=== PATIENT | male | born 1975 ===

== ENCOUNTER 2025-09-08 09:50 | Outpatient (REF) | payer OTHER, SELFPAY ==
--- OUTSIDE RECORDS SUMMARY | 2025-09-08 13:54 | XMS_ITS | Clinical Summary ---
Author Organization [employer] [facility] ity Address [address] [place] [address] Care Team Providers Care Terrazzo Tile Setter Name Role Phone Tc Ho MD Primary Care Provider [phone] Surgical History Surgery Date Site/Laterality Comments APPENDECTOMY at age 8 PROCEDURE: HISTORICAL APPENDECTOMY MULTIPLE TOOTH EXTRACTIONS PROCEDURE: HISTORICAL DENTAL EXTRACTION Family History Medical History Relation Name Comments Diabetes Father Hyperlipidemia Father Hypertension Father Diabetes Mother Hyperlipidemia Mother Hypertension Mother Thyroid disease Mother Colon cancer Paternal Grandfather Prostate cancer Paternal Grandfather Relation Name Status Comments Daughter 1 Alive Daughter 2 Alive Daughter 3 Alive Father Alive Maternal Grandfather Maternal Grandmother Mother Alive Paternal Grandfather Paternal Grandmother Alive Sister 1 Alive Sister 2 Alive Son 1 Alive Son 2 Alive Son 3 Alive Social History Tobacco Use Types Packs/Day Years Used Date Smoking Tobacco: Never Smokeless Tobacco: Never Alcohol Use Standard Drinks/Week Comments No 0 (1 standard drink = 0.6 oz pur e alcohol) Sex and Gender Information Value Date Recorded Sex Assigned at Not on file Legal Sex Male 9:26 AM EST Gender Identity Not on file Sexual Orientation Not on file Obstetrics History Plan of Treatment Health Maintenance Due Date Last Done Comments Hepatitis B Vaccines (1 of 3 - 19+ 3-dose series) 1994 DTaP,Tdap,and Td Vaccines (2 - Td or Tdap) 04/26/2024 04/26/2014 Depression Screening 11/16/2024 Pneumococcal Vaccine: 50+ Years (1 of 1 - PCV) 2025 Zoster Vaccines (1 of 2) 2025 COVID-19 Vaccine (1 - 2023-2 5 season) 2025 Influenza Vaccine (#1) 2025 6, 09/21/2014 RSV Immunization Adult Patients (1 - 1-dose 75+ series) 2050 HIB Vaccines Aged Out No longer eligi ble based on patient's age to complete this topic HPV Vaccines Aged Out No longer eligi ble based on patient's age to complete this topic Hepatitis A Vaccines Aged Out No long er eligible based on patient's age to complete this topic IPV Vaccines Aged Out No longer eligi ble based on patient's age to complete this topic MMR Vaccines Aged Out No longer eligi ble based on patient's age to complete this topic Meningococcal ACWY Vaccine Aged Out N o longer eligible based on patient's age to complete this topic Meningococcal B Vaccine Aged Out No l onger eligible based on patient's age to complete this topic RSV Immunization Patients Under 20 months Aged Out No longer eligible b ased on patient's age to complete this topic Varicella Vaccines Aged Out No longer eligible based on patient's age to complete this topic Care Teams Terrazzo Tile Setter Relationship Specialty Start Date End Date Tc Ho MD PCP - General Internal Medicine 05/14/20
[2025-09-08 14:26] LABS: Appearance Urine Clear; Glucose Urine UA Negative (Negative); PH 7.0 (5.0-9.0); Specific Gravity - Urine 1.010 (1.005-1.025)
[2025-09-08 15:24] LABS: Alanine Aminotransferase 31 U/L (0-40); Albumin Level 4.8 g/dL (3.5-5.0); Alkaline Phosphatase 56 U/L (39-117); Anion Gap 11 (12-20); Aspartate Amino Transferase 25 U/L (5-37); Blood Urea Nitrogen 15 mg/dL (9-16); Calcium 8.9 mg/dL (8.4-10.2); Carbon Dioxide 27 mmol/L (22-29); Chloride 108 mmol/L (96-108); Cholesterol 151 mg/dL (<200); Estimated Glomerular Filt Rate > 60; HDL Cholesterol 59 mg/dL (>40); Potassium 3.7 mmol/L (3.3-5.1); Sodium 142 mmol/L (135-145); Total Protein 7.8 g/dL (6.5-8.0); Triglycerides 55 mg/dL (<150)
[2025-09-15 22:14] LABS: Testosterone, Free 63.4 pg/mL (35.0-155.0)
== END 2025-09-08 09:51 | disposition home or self-care (01) ==
LOC: HO.WFDLDS 09:50
PROVIDERS: PCP Family Medicine; Visit Provider Family Medicine
DX: Z00.00 Encounter for general adult medical examination without abnormal findings (principal); Z12.5 Encounter for screening for malignant neoplasm of prostate; R73.01 Impaired fasting glucose; I10 Essential (primary) hypertension; Z79.899 Other long term (current) drug therapy
CPT/HCPCS: 36415; 80053; 80061; 81003; 82043; 82570; 83036; 84153; 84402; 84403; 84443; 96127; 99212

== ENCOUNTER 2025-09-08 09:50 | Outpatient (AMB) | payer OTHER, SELFPAY ==
--- NOTE | 2025-09-08 09:54 | A.OFFPC_ITS ---
Vital Signs 09/08/25 10:34 Height 5 ft 7 in Weight 164 lb 4 oz BMI 25.7 BP 118/82 Blood Pressure Location Lt brachial Position Sitting Respiration 14 Pulse 69 Pulse Source Pulse Oximeter Temp 97.6 F Temp Source Temporal Artery Scan Pulse Oximetry (%) 98 Oxygen Delivery Method Room Air Intake Visit Reasons: est care/request a pe Intake Note: Tl presents in the office today to establish care. Allergies Seasonal Allergies Allergy (Intermediate, Verified 09/08/25 10:29) Sinus Congestion Medication List - Last Reconciled 09/08/25 by Sunny Bailey MD lutein 20 mg PO DAILY magnesium chloride mg PO multivitamin (Daily Multi-Vitamin tablet) 1 tab PO DAILY omega-3 acid ethyl esters 1 cap PO DAILY Tobacco use date assessed: 09/08/25 Dental Screening Dental Screen Date: 09/08/25 Did you have a dental visit in the last 12 months?: Yes Did you have a dental problem in the last 6 months where you did not have access to dental care?: No Was dental information given to patient?: Patient has dentist HPI est care/request a pe HPI Details New Patient? ?? Prior PCP:? Gabriella Krishnan [place] [facility] [place] Last office visit/CPE:? > 1 yr Acute issue(s):? Pt had Thyroid nodule. FH Thyroid issues Will get U/S ?? PMHx:?Thyroid Nodule Elevated A1c per pt. SurgHx:? Appendix FHx:?Mom: Thyroid issues., Dad: DM SocHx: Cigs None. EtOH Occassional Wine. No Drugs PFSH Medical History (Updated 09/08/25 @ 11:09 by Fausto Beaver) Acid reflux Surgical History (Updated 09/08/25 @ 10:14 by Mckenzie Ruff CMA) Hx of appendectomy H/O colonoscopy Family History (Updated 09/08/25 @ 10:35 by Mckenzie Ruff CMA) Father Hypertension Diabetes Mother Diabetes Maternal Grandmother Diabetes Paternal Grandfather Cancer Prostate cancer Sister Thyroid cancer Social History Housing: House Patient Tobacco Use Status: Never used Tobacco e-Cigarette/Vaping Use: Never Used Second Hand Smoke Exposure: No service: No Current occupational status: employed Current occupation: [employer] Current occupational exposures/hazards: No Cognitive needs: No Hearing needs: No Vision needs: No Questionnaire PHQ-9 Over the last 2 weeks, how often have you been bothered by any of the following problems? 1. Little interest or pleasure in doing things: not at all 2. Feeling down, depressed, or hopeless: not at all 3. Trouble falling or staying asleep, or sleeping too much: not at all 4. Feeling tired or having little energy: not at all 5. Poor appetite or overeating: not at all 6. Feeling bad about yourself - or that you are a failure or have let yourself or your family down: not at all 7. Trouble concentrating on things, such as reading the newspaper or watching television: not at all 8. Moving or speaking so slowly that other people could have noticed. Or the opposite - being so fidgety or restless that you have been moving around a lot more than usual: not at all 9. Thoughts that you would be better off or of hurting yourself in some way: not at all Total score: 0 Depression Screening Interpretation: Negative Depression Screening Done: Yes Source: Developed by Drs. Jose L Cortez, Yoanna Olivares, Darshan Mcdonnell and colleagues, with an educational chiquis from [employer]. Thrive Questionnaire Date Thrive assessed: 09/08/25 I am a: Patient What is your living situation today?: I have a steady place to live Within the past 12 months, did the food you bought not last and you didn't have the money to get more?: I choose not to answer this question Within the past 12 months, did you worry whether your food would run out before you got money to buy more?: I choose not to answer this question Do you have trouble paying for medicines?: No Do you have trouble getting transportation to medical appointments?: No Do you have trouble paying your heating and electricity bill?: I choose not to answer this question Do you have trouble taking care of your child, family member or friend?: No Do you have trouble with day-to-day activities such as bathing, preparing meals, shopping, managing finances, etc.?: No Are you currently unemployed and looking for a job?: No Are you interested in more education?: Yes Please select the resources that you would like help with: None Currently or been in a relationship where the following occur: No concerns reported THRIVE Score: 0 AUDIT C Alcohol Use Questionnaire (AUDIT-C) 1. How often do you have a drink containing alcohol?: Monthly or less 2. How many drinks containing alcohol do you have on a typical day when you are drinking?: 1 or 2 3. How often do you have six or more drinks on one occasion?: Never Total Score: 1 ENRICO-7 AMB Questionnaire ENRICO-7 Date ENRICO - 7 assessed: 09/08/25 Feeling nervous, anxious, or on edge: 0 = Not at all Not being able to stop or control worryin = Not at all Worrying too much about different things: 0 = Not at all Trouble relaxin = Not at all Being so restless that it is hard to sit still: 0 = Not at all Becoming easily annoyed or irritable: 0 = Not at all Feeling afraid as if something awful might happen: 0 = Not at all Total ENRICO-7 score (0-4 normal; 5-9 mild; 10-14 moderate; 15-21 severe): 0 Source: Developed by Drs. Jose L Cortez, Yoanna Olivares, Darshan Mcdonnell and colleagues, with an educational chiquis from [employer]. ENRICO-7 Assessment Billing ENRICO-7 Assessment Tool: ENRICO-7 Assessment 74000 Review of Systems Const Denies chills, Denies fatigue, Denies fever(s), Denies headache(s) and Denies weakness Eyes Denies change in vision ENT Denies dizziness, Denies headache(s), Denies hearing loss, Denies nasal congestion, Denies sinus pain, Denies sinus pressure and Denies sore throat Card Denies chest pain, Denies lightheadedness, Denies dyspnea and Denies other (palpitations) Resp Denies cough, Denies dyspnea and Denies wheezing GI Denies abdominal pain, Denies melena, Denies hematochezia, Denies change in bowel habits, Denies dyspepsia and Denies nausea Denies hematuria and Denies dysuria Musc Denies abnormal gait, Denies myalgias, Denies arthralgias, Denies numbness and Denies tingling Skin/Breast Denies rash, Denies unusual bruising and Denies wounds Neuro Denies abnormal gait, Denies dizziness, Denies headache(s), Denies memory loss, Denies numbness, Denies Sensory deficit (Neuro), Denies tingling and Denies weakness Psych Denies anxiety, Denies depression and Denies memory loss Endo Denies cold intolerance, Denies fatigue, Denies heat intolerance, Denies polydipsia and Denies polyuria Caleb/Lymph Denies easy bleeding and Denies easy bruising Aller/Immun Denies wheezing Physical exam (Primary Care) Vital Signs: Last Vital Signs Temp 97.6 F 09/08/25 10:34 Pulse 69 09/08/25 10:34 Resp 14 09/08/25 10:34 BP 118/82 09/08/25 10:34 Pulse Ox 98 09/08/25 10:34 Oxygen Delivery Method Room Air 09/08/25 10:34 BMI result Body Mass Index 25.7 Tobacco/Smoking Status: Tobacco use Status Tobacco use date assessed 09/08/25 09/08/25 10:37 Patient Tobacco Use Status Never used Tobacco 09/08/25 10:37 e-Cigarette/Vaping Use Never Used 09/08/25 10:37 PHQ-9: PHQ-9 Score PHQ-9: Total score 0 09/08/25 10:37 Depression Screening Interpretation: Negative Thrive Assessment: Date of Thrive Assessment Date Thrive assessed 09/08/25 09/08/25 09:55 Currently or been in a relationship where the following occur: No concerns reported Const General: no acute distress, well developed, alert and awake Nutritional Appearance: well nourished Orientation/consciousness: patient oriented x3 HENMT Head: Yes normocephalic and Yes atraumatic Ears: hearing grossly normal bilaterally and TM's normal bilaterally General nose exam: Normal external nose present and Normal nares present Mouth: Normal oral and palatal mucosa present and moist mucous membranes Teeth and gingiva: dentition normal Throat: Yes posterior oropharynx normal Eyes General: appearance normal, both eyes and all related structures Pupils: Equal, round and reactive pupils present and Pupil accommodation reflex normal EOM: EOMs intact bilaterally Neck Neck: Yes normal visual inspection, Yes no lymphadenopathy and Yes trachea midline Thyroid: Thyroid normal Carotids: no bruits Lymphatic: no lymphadenopathy noted Chest Chest palpation & inspection: normal inspection of the chest Resp Effort & Inspection: normal respiratory effort Auscultation: clear to auscultation bilaterally Cardio Rate: regular rate Rhythm: regular rhythm Heart sounds: S1 normal heart sound present, S2 normal heart sound present, no gallops, no murmurs and no rubs Bruits: no abdominal aortic bruits and no carotid bruits GI Palpation (GI): No Abdominal aortic bruit present, Soft to palpation, nontender, No hepatosplenomegaly present and No Rebound tenderness present Auscultation: normal bowel sounds General: Yes no CVA tenderness Back/Spine/Pelvis Back: no CVA tenderness Cervical Spine: cervical ROM normal and No Cervical spine tenderness Thoracic/Lumbar Spine: thoraco-lumbar ROM normal, No pain with thoraco-lumbar ROM, No thoracic spinal tenderness and No lumbar spinal tenderness Skin Lesions: no lesions Rashes: no rashes Trauma: no lacerations or abrasions Wounds: no wounds Nails: normal Neuro General: patient oriented x3 Cranial nerves: Yes Equal, round and reactive pupils present Cognition (Neuro): normal cognition Gait exam (Neuro): Normal gait present Motor exam (neuro): 5/5 motor strength present throughout Sensory Exam: No Sensory deficit (Neuro) Deep tendon reflexes (DTR's): Right patellar reflex intensity grade: 2+ and Left patellar reflex intensity grade: 2+ Extrem General: Yes normal to inspection and No edema Psych Appearance: grossly normal Affect: normal affect Attitude: cooperative Thought process: Normal thought process present Coding Level of Care Code New Pt Level 3 (69180) New Pt Prev Care 40-64y(91115) Diagnoses Thyroid nodule E04.1 Acid reflux K21.9 Difficulty sleeping G47.9 Adult general medical exam Z00.00 Additional Codes ENRICO-7 Assessment Billing - ENRICO-7 Assessment Tool: ENRICO-7 Assessment 28785 ([id number]) Assessment & Plan Assessment & Plan (1) Thyroid nodule: Code(s): E04.1 - Nontoxic single thyroid nodule Category: Medical Plan: History of thyroid nodule. Patient says he was being followed Q2 years by ultrasound Will request prior records Due for ultrasound-ordered (2) Acid reflux: Code(s): K21.9 - Gastro-esophageal reflux disease without esophagitis Category: Medical Plan: Patient will use Pepcid intermittently when he has symptoms and can also use in an anticipatory fashion If he is still having significant symptoms, he will let know (3) Difficulty sleeping: Code(s): G47.9 - Sleep disorder, unspecified Category: Medical Plan: Encouraged patient to read about ?sleep hygiene? Encouraged exercise but not too close to bedtime (4) Adult general medical exam: Code(s): Z00.00 - Encounter for general adult medical examination without abnormal findings Category: Medical Plan: 50-year-old male presents as new patient for complete physical exam Exam within normal limits Encouraged healthy diet with active lifestyle and plenty of exercise Plan He will follow-up by telemedicine in few weeks to review CPE-labs. Will also follow-up on thyroid ultrasound if results are available. Will also review health maintenance Lastly, patient has strong family history of diabetes and noted changes his A1c in the past. Checking A1c. Orders: Orders Hemoglobin A1c Today R73.01 - Impaired fasting glucose US thyroid Today E04.1 - Nontoxic single thyroid nodule Comprehensive [place]. Panel Fast Today Z00.00 - Encounter for general adult medical examination without abnormal findings Lipid Panel Today Z00.00 - Encounter for general adult medical examination without abnormal findings Microalbumin, Random (w Creat) Today I10 - Essential (primary) hypertension Prostate Specific Antigen Scr Today Z12.5 - Encounter for screening for malignant neoplasm of prostate UA CC w/rflx Micro + Cult Today Z00.00 - Encounter for general adult medical examination without abnormal findings TSH reflex Free T4 Today Z00.00 - Encounter for general adult medical examination without abnormal findings Testosterone, Free/Total Today Z00.00 - Encounter for general adult medical examination without abnormal findings
[2025-09-08 10:34] VITALS: BP 118/82; PULSE 69; RESP 14; TEMP 36.4; O2SAT 98; BMI 25.7
--- OUTSIDE RECORDS SUMMARY | 2025-09-08 11:07 | XMS_ITS ---
Author Name [facility] Organization Unknown Care Team Organization Name Specialty Phone Email Start Date End Da jose [facility] Primary [facility] 04/24/2023 4
== END 2025-09-08 11:13 | disposition home or self-care (01) ==
LOC: HO.HMCFM 09:51
PROVIDERS: PCP Family Medicine; Visit Provider Family Medicine
DX: Z00.00 Encounter for general adult medical examination without abnormal findings (principal); E04.1 Nontoxic single thyroid nodule; K21.9 Gastro-esophageal reflux disease without esophagitis; G47.9 Sleep disorder, unspecified

== ENCOUNTER → 2025-10-06 15:26 | Outpatient (AMB) | payer OTHER, SELFPAY ==
--- NOTE | 2025-10-06 15:23 | A.OFFPC_ITS ---
Intake Visit Reasons: telemedicine in few weeks to review CPE-labs Intake Note: Patient is scheduled to review labs with pcp Jacquard Lace Weaver Required: No Allergies Seasonal Allergies Allergy (Intermediate, Verified 10/06/25 15:24) Sinus Congestion Medication List - Last Reconciled 10/06/25 by Sunny Bailey MD lutein 20 mg PO DAILY magnesium chloride mg PO multivitamin (Daily Multi-Vitamin tablet) 1 tab PO DAILY omega-3 acid ethyl esters 1 cap PO DAILY Tobacco use date assessed: 09/08/25 Dental Screening Dental Screen Date: 09/08/25 HPI telemedicine in few weeks to review CPE-labs HPI Details 50 y/o male presents to f/u labs via tel emed. Labs drawn 09/08/25. Reviewed labs with pt. Triglycerides 55. TC 151. LDL 81. HDL 59. PSA 1.11. Hx of thryoid nodules. PFSH Medical History (Updated 10/06/25 @ 16:51 by Fausto Beaver) Acid reflux Surgical History (Updated 09/08/25 @ 10:14 by Mckenzie Ruff [facility]) Hx of appendectomy H/O colonoscopy Family History (Updated 09/08/25 @ 10:35 by Mckenzie Ruff CMA) Father Hypertension Diabetes Mother Diabetes Maternal Grandmother Diabetes Paternal Grandfather Cancer Prostate cancer Sister Thyroid cancer Social History Housing: House Patient Tobacco Use Status: Never used Tobacco e-Cigarette/Vaping Use: Never Used Second Hand Smoke Exposure: No service: No Current occupational status: employed Current occupation: [employer] Current occupational exposures/hazards: No Cognitive needs: No Hearing needs: No Vision needs: No Questionnaire Thrive Questionnaire Date Thrive assessed: 09/08/25 ENRCIO-7 AMB Questionnaire ENRICO-7 Date ENRICO - 7 assessed: 09/08/25 Source: Developed by Drs. Jose L Cortez, Yoanna Olivares, Darshan Mcdonnell and colleagues, with an educational chiquis from [employer] Review of Systems Const Denies chills, Denies fatigue, Denies fever(s), Denies headache(s) and Denies weakness ENT Denies dizziness and Denies headache(s) Card Denies dyspnea Resp Denies cough, Denies dyspnea, Denies wheezing and Denies other (shortness of breath) Musc Denies numbness and Denies tingling Neuro Denies dizziness, Denies headache(s), Denies numbness, Denies tingling and Denies weakness Psych Denies anxiety and Denies depression Endo Denies fatigue Aller/Immun Denies wheezing Physical exam (Primary Care) Tobacco/Smoking Status: Tobacco use Status Tobacco use date assessed 09/08/25 10/06/25 15:25 Patient Tobacco Use Status Never used Tobacco 10/06/25 15:25 e-Cigarette/Vaping Use Never Used 10/06/25 15:25 Thrive Assessment: Date of Thrive Assessment Date Thrive assessed 09/08/25 10/06/25 15:25 Telehealth Telehealth Telehealth Platform: Telephone Location of provider rendering services: practice address Location of patient: address on file Patient Identification confirmed using: Name, : Yes Telehealth method: voice only Patient verbally consented to treatment: Yes Patient verbally consented to billing insurance company: Yes Patient informed of any privacy concerns related to visit: Yes Minutes spent on Phone/Video with Pt.: 11 Coding Level of Care Code Tele Est Pt Level 2 (87515) Diagnoses Pre-diabetes R73.03 Thyroid nodule E04.1 Screening for prostate cancer Z12.5 Assessment & Plan Assessment & Plan (1) Pre-diabetes: Code(s): R73.03 - Prediabetes Category: Medical Plan: A1c is 5.9%; pre diabetes range Patient has strong family history of diabetes Encouraged a diet low in sugars and starches He has already been working on weight loss and says he has lost about 7 lb since our last visit. Encouraged additional weight loss Will recheck prior to next visit (2) Thyroid nodule: Code(s): E04.1 - Nontoxic single thyroid nodule Category: Medical Plan: Patient has his thyroid ultrasound scan ordered for November 23 Will call him if action is required, otherwise we will review at upcoming appointment in about 3 months Has been followed about Q 2 years (3) Screening for prostate cancer: Code(s): Z12.5 - Encounter for screening for malignant neoplasm of prostate Category: Medical Plan: PSA was within normal range Will continue annual screening Orders: Orders Hemoglobin A1c Today R73.01 - Impaired fasting glucose, R73.03 - Prediabetes Comprehensive [place]. Panel Fast Today R73.03 - Prediabetes, Z00.00 - Encounter for general adult medical examination without abnormal findings
--- OUTSIDE RECORDS SUMMARY | 2025-10-06 15:32 | XMS_ITS | Clinical Summary ---
Author Organization [facility] ity Address [address] [place] [address] Care Team Providers Care Hand Candy Dipper Name Role Phone Tc Ho MD Primary Care Provider [phone] Surgical History Surgery Date Site/Laterality Comments APPENDECTOMY [...] of 2) 2025 COVID-19 Vaccine (1 - 2024-2 6 season) 2025 Influenza Vaccine (#1) 2025 6, [...] age to complete this topic Care Teams Hand Candy Dipper Relationship Specialty Start Date End Date Tc Ho MD PCP - General Internal Medicine 05/14/20
== END ==
LOC: HO.HMCFM 15:27
PROVIDERS: PCP Family Medicine; Visit Provider Family Medicine
DX: R73.03 Prediabetes (principal); E04.1 Nontoxic single thyroid nodule; Z12.5 Encounter for screening for malignant neoplasm of prostate